=== PATIENT | male | born 1965 | race Caucasian/White ===

== ENCOUNTER 2018-11-26 19:41 | Emergency (ER) | payer OTHER ==
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
[2018-11-26] MEDS ORDERED: Bacitracin Oint 1 GM U/D Packet TOP ONE ×2 (19:49→19:50)
[2018-11-26 20:41] LABS: CHLORIDE,CL 103 mmol/L (98-107); SODIUM,NA 139 mmol/L (136-148)
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
== END 2018-11-26 22:00 | disposition home or self-care (01) ==
LOC: MW.ED 19:41
DX: S01.01XA Laceration without foreign body of scalp, initial encounter (principal); S49.91XA Unspecified injury of right shoulder and upper arm, initial encounter; S40.211A Abrasion of right shoulder, initial encounter; S50.312A Abrasion of left elbow, initial encounter; S50.812A Abrasion of left forearm, initial encounter; S60.511A Abrasion of right hand, initial encounter; S50.311A Abrasion of right elbow, initial encounter; V29.9XXA Motorcycle rider (driver) (passenger) injured in unspecified traffic accident, initial encounter
CPT/HCPCS: 12002; 36415; 70450; 71101; 72100; 72125; 72170; 73030; 80053; 85025; 85610; 99284; J2001

== ENCOUNTER 2018-12-06 18:52 | Emergency (ER) | payer OTHER | END 2018-12-06 19:01 | disposition left against medical advice (07) | LOC: MW.ED 18:52 | DX: Z53.21 Procedure and treatment not carried out due to patient leaving prior to being seen by health care provider (principal) ==

== ENCOUNTER 2019-12-08 19:41 | Emergency (ER) | payer OTHER ==
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
[2019-12-08] MEDS ORDERED: Bacitracin Oint 1 GM U/D Packet TOP ONE (20:54)
[2019-12-08] MEDS ORDERED: traMADol 50 MG Tab PO ONE (20:54)
== END 2019-12-08 21:12 | disposition home or self-care (01) ==
LOC: MW.ED 19:41
DX: S81.811A Laceration without foreign body, right lower leg, initial encounter (principal); S40.812A Abrasion of left upper arm, initial encounter; S40.811A Abrasion of right upper arm, initial encounter; S80.812A Abrasion, left lower leg, initial encounter; S80.811A Abrasion, right lower leg, initial encounter; V87.8XXA Person injured in other specified noncollision transport accidents involving motor vehicle (traffic), initial encounter
CPT/HCPCS: 12002; 99282; A9270; J2001